=== PATIENT | male | born 1960 | race Caucasian/White ===

== ENCOUNTER → 2017-01-13 | Outpatient (CLI) | payer BC ==
--- NOTE | 2017-01-13 12:44 | DI ---
RIGHT ELBOW, 01/13/2017 11:37 AM: Clinical History: Right elbow pain. Previous Exam: None at this facility. 3 views are submitted. There is no acute soft tissue, osseous, or joint abnormality. There is a small bony spur at the attachment of the triceps tendon on the olecranon. Reading: Normal right elbow exam.
== END ==
LOC: ORTHO 11:48
PROVIDERS: ATTEND Orthopaedic Surgery
DX: M25.521 Pain in right elbow (principal); M12.821 Other specific arthropathies, not elsewhere classified, right elbow
CPT/HCPCS: 73080